=== PATIENT | female | born 1965 | race Caucasian/White ===

== ENCOUNTER 2019-08-02 11:09 | Outpatient (CLI) | payer OTHER, SELFPAY ==
--- NOTE | ~2019-08-02 | XR_ITS ---
XR chest 2V DATE: 08/02/2019 11:24 INDICATION: Chest pain TECHNIQUE: PA and lateral views COMPARISON: None FINDINGS: Normal heart size. No hilar or mediastinal enlargement. No pulmonary infiltrate or consolid ation, pleural effusion or pulmonary vascular congestion or pneumothorax. Thoracic and lumbar scolios is. The right breast shadow is smaller than the left and there are surgical clips overlying the right axi llary area, suggesting partial right mastectomy and right axillary node dissection. IMPRESSION: No active cardiopulmonary disease Reviewed, dictated and finalized at location A.
== END 2019-08-02 11:10 | disposition home or self-care (01) ==
LOC: ANHIMG 11:11
PROVIDERS: PCP Family Medicine; Visit Provider Family Medicine
DX: R07.9 Chest pain, unspecified (principal)
CPT/HCPCS: 71046

== ENCOUNTER 2019-09-15 12:34 | Outpatient (CLI) | payer OTHER, SELFPAY ==
--- NOTE | ~2019-09-15 | CT_ITS ---
EXAMINATION: CT abdomen pelvis w con DATE: 09/15/2019 13:56 INDICATION: Left lower quadrant abdominal pain, right lower quadrant abdominal pain TECHNIQUE: Computed tomography (CT) of the abdomen and pelvis was performed with 100 cc Omnipaque 350 intravenous contrast. Automated exposure control and iterative reconstruction technique were employe d. Exam dose: 261.26 mGy-cm total exam DLP. COMPARISON: 03/31/2019 CT abdomen pelvis FINDINGS: The lung bases are clear of infiltrate or consolidation. Normal heart size. No pericardial or pleural effusion. There is an approximately 7 mm indeterminate hypoattenuating lesion of the medial segment of the left hepatic lobe. Probable 5 mm cyst of the lateral segment of left hepatic lobe. No other hepatic space -occupying mass lesion is evident. The gallbladder is present. No gallbladder wall thickening or pericholecystic fluid or stranding. No bile duct or pancreatic duct dilatation. Normal splenic size. There are multiple calcified splenic granulomas. Normal morphology of the adrenal glands. Status post right nephrectomy. Again noted is suggestion of prominent left hydronephrosis, likely due to ureteropelvic junction disp roportion. There are multiple parapelvic left renal cysts, as well as some small cortical cysts. No s uspicious solid left renal mass lesion is evident. No left urinary tract calculus is noted. Normal caliber of the abdominal aorta. There is a long segment of thickening of the wall of the proximal sigmoid colon and mild pericolic fa t stranding. There are multiple diverticula. The findings suggest diverticulitis. No abscess is evide nt. No bowel obstruction is detected. No intraperitoneal free air. Normal appendix. No suspicious osteolytic or osteoblastic lesions. IMPRESSION: Sigmoid diverticulitis Diverticulosis of the colon Persistent left hydronephrosis, likely due to a UPJ disproportion Parapelvic and small cortical left renal cysts Status post right nephrectomy 7 mm and 5 mm hypoattenuating hepatic lesions, stable since 03/31/2019, likely benign Reviewed, dictated and finalized at Location [facility]. Reviewed, dictated and finalized at location A.
[2019-09-15 13:40] LABS: Estimated Glomerular Filt Rate 52
[2019-09-15 14:35] LABS: Hematocrit 40.6 % (37.0-47.0); Hemoglobin 13.5 g/dL (12.0-15.0); Mean Corpuscular HGB Conc 33.3 g/dl (32-36); Mean Corpuscular Hemoglobin 28.6 pg (26-34); Mean Platelet Volume 11.1 fl (7.4-10.4); Platelet Count Result 153 k/mm3 (150-375); Red Blood Count 4.72 M/mm3 (4.2-5.4); Red Cell Distribution Width 12.1 % (11.5-14.5); White Blood Count 5.5 K/mm3 (4.5-10.0)
== END 2019-09-15 12:35 | disposition home or self-care (01) ==
PROVIDERS: PCP Family Medicine; Visit Provider Family Medicine
DX: K57.92 Diverticulitis of intestine, part unspecified, without perforation or abscess without bleeding (principal); R10.32 Left lower quadrant pain
CPT/HCPCS: 36415; 74177; 85027; Q9967

== ENCOUNTER 2020-01-17 01:00 | Outpatient (CLI) | payer OTHER, SELFPAY ==
[2020-01-17 19:19] LABS: SARS-CoV-2 RNA PCR Negative
== END 2020-01-17 01:01 | disposition home or self-care (01) ==
LOC: ANHCOVIDDT 01:00
PROVIDERS: PCP Family Medicine; Visit Provider Internal Medicine Gastroenterology
DX: Z01.812 Encounter for preprocedural laboratory examination (principal); Z20.828 Contact with and (suspected) exposure to other viral communicable diseases
CPT/HCPCS: 87635; C9803; U0003

== ENCOUNTER 2020-01-19 00:41 | Day surgery (SDC) | payer OTHER, SELFPAY ==
[2019-10-20 10:19] VITALS: BMI 22.8
[2020-01-12 14:38] VITALS: BMI 23.7
[2020-01-19 10:19] VITALS: BP 127/74; PULSE 74; RESP 20; TEMP 36.6; O2SAT 100
[2020-01-19] MEDS: LACTATED RINGERS 1,000 ML 150 ML IV CONT (10:28)
--- NOTE | 2020-01-19 10:51 | WPDANESEPPF ---
Anes - Initial Pre Proc Eval Procedure: Operation Date: 01/19/20 11:00 Proposed Procedures p Colonoscopy - Ja Umanzor MD Date/Time: 01/19/20 10:51 Surgeon: Ja Umanzor MD Pre Op Diagnosis: Diverticulitis Patient Data Age: 54 Gender: F Height: 5 ft 1 in Weight: 54.8 kg Last Vital Signs Temp 97.8 F 01/19/20 10:19 Pulse 74 01/19/20 10:19 Resp 20 01/19/20 10:19 BP 127/74 01/19/20 10:19 Pulse Ox 100 01/19/20 10:19 Allergies Allergy/AdvReac Type Severity Reaction Status Date / Time No Known Allergies Allergy Unknown Verified 01/19/20 10:12 Home Medications Medication Instructions Recorded Confirmed Type zolpidem 10 mg tablet 10 mg PO .HS PRN #30 tablet 03/24/19 10/20/19 Rx fluticasone propionate 50 1 spray NASAL BID #1 device 09/22/19 10/20/19 Rx mcg/actuation nasal spray,suspension peg 3350-electrolytes 236 240 ml PO Q10M #4000 ml 10/17/19 01/12/20 Rx gram-22.74 gram-6.74 gram-5.86 gram solution atenolol 100 mg PO BID 10/20/19 01/19/20 History lisinopril 20 mg tablet 20 mg PO DAILY #30 tablet 12/19/19 01/19/20 Rx amlodipine 5 mg tablet 5 mg PO DAILY #90 tablet 01/17/20 Rx simvastatin 20 mg tablet 20 mg PO DAILY #90 tablet 01/17/20 Rx Patient hx anesthesia problems: none Family hx anesthesia problems: none PMFSH Past Medical History Medical History Allergic rhinitis Diverticulitis large intestine Essential (primary) hypertension History of breast cancer Insomnia Liver cyst Mixed hyperlipidemia Renal cell cancer Surgical History Surgical History H/O colonoscopy H/O lumpectomy History of right nephrectomy Family History Family History Other Family history of chronic obstructive pulmonary disease Family history of coronary artery disease Social History Social History Smoking packs per day: 1 Smoking cigarettes per day: 20.0 Years smoked: 5 Smoking pack-years: 5.00 Smoking status: Former smoker Second hand tobacco smoke exposure: No Alcohol intake: never Living arrangements: with family Gender identity (if verbalized by the patient): Female Spiritual care concerns: No Anes - Eval Final PreProcedure Day of Procedure 01/19/20 10:51 Patient weight: normal Heart: regular rate and rhythm Lungs: clear to auscultation Airway: Mallampati scale class II Neurological: alert and oriented Last oral intake: >/= 8 hours ASA classification: III Emergent: no Anesthetic plan: proceed Anesthesia type and monitoring: general GIVS and standard monitoring Informed Consent: The patient's anesthetic plan and its attendant risks and benefits were discussed with the patient/family/POA. Questions were solicited and answers provided to the satisfaction of the patient/family/POA.
--- NOTE | 2020-01-19 11:13 | PM.HPGS ---
History of Present Illness History of Present Illness Consent: Risks, benefits, and alternatives have been discussed and questions answered. Patient agrees to proceed with procedure. Chief complaint: Diverticulitis Narrative: Luci Chan is a 54 year old female with previous diverticulitis now asymptomatic, last colonoscopy 5 years ago Review of Systems Constitutional: Constitutional: Denies headache(s) and Denies weakness Eyes: Eyes: Denies blurry vision ENT: Reports Normal hearing present, Denies headache(s) and Denies neck pain Cardiovascular: Cardiovascular: Denies chest pain and Denies dyspnea Respiratory: Respiratory: Denies dyspnea Gastrointestinal: Gastrointestinal: Reports no additional gastrointestinal complaints Genitourinary: Genitourinary: Denies dysuria Musculoskeletal: Musculoskeletal: Denies neck pain Integumentary/Breasts: Skin/Breast: Denies dry skin Neurologic: Reports Normal hearing present, Denies headache(s) and Denies weakness Psychiatric: Psychiatric: Denies anxiety Endocrine: Endocrine: Denies change in body appearance Hematologic/Lymphatic: Hematologic/Lymphatic: Denies easy bleeding Allergic/Immunologic: Allergic/Immunologic: Denies urticaria PMFSH Past Medical History Medical History Allergic rhinitis Diverticulitis large intestine Essential (primary) hypertension History of breast cancer Insomnia Liver cyst Mixed hyperlipidemia Renal cell cancer Surgical History Surgical History H/O colonoscopy H/O lumpectomy History of right nephrectomy Family History Family History Other Family history of chronic obstructive pulmonary disease Family history of coronary artery disease Social History Social History Smoking packs per day: 1 Smoking cigarettes per day: 20.0 Years smoked: 5 Smoking pack-years: 5.00 Smoking status: Former smoker Second hand tobacco smoke exposure: No Alcohol intake: never Living arrangements: with family Gender identity (if verbalized by the patient): Female Spiritual care concerns: No Meds Home Medications and Allergies Home Medications Medication Instructions Recorded Confirmed Type zolpidem 10 mg tablet 10 mg PO .HS PRN #30 tablet 03/24/19 10/20/19 Rx fluticasone propionate 50 1 spray NASAL BID #1 device 09/22/19 10/20/19 Rx mcg/actuation nasal spray,suspension peg 3350-electrolytes 236 240 ml PO Q10M #4000 ml 10/17/19 01/12/20 Rx gram-22.74 gram-6.74 gram-5.86 gram solution atenolol 100 mg PO BID 10/20/19 01/19/20 History lisinopril 20 mg tablet 20 mg PO DAILY #30 tablet 12/19/19 01/19/20 Rx amlodipine 5 mg tablet 5 mg PO DAILY #90 tablet 01/17/20 Rx simvastatin 20 mg tablet 20 mg PO DAILY #90 tablet 01/17/20 Rx Allergies Allergy/AdvReac Type Severity Reaction Status Date / Time No Known Allergies Allergy Unknown Verified 01/19/20 10:12 Vital Signs Vital Signs - 24 hr 01/19/20 10:19 Temperature 97.8 F Pulse Rate 74 Respiratory Rate 20 Blood Pressure 127/74 Pulse Oximetry 100 Exam Const: General: comfortable and no acute distress HENMT: General nose exam: Normal nares present Eyes: General: appearance normal, both eyes and all related structures Neck: Neck: no JVD Resp: Auscultation: clear to auscultation bilaterally Cardio: Rate: regular rate Rhythm: regular rhythm GI: Inspection: non-distended GI Palp: Yes Soft to palpation Skin: General skin exam: normal color Neuro: General: gait normal Speech: normal speech Extrem: General: normal to inspection Psych: Mental Status: mental status grossly normal Assessment and Plan Assessment and plan (1) Diverticulitis large intestine: Code(s): K57.32 - Divertic
[2020-01-19 11:17] VITALS: BP 102/85; PULSE 82; RESP 12; O2SAT 100
[2020-01-19 11:27] VITALS: BP 99/75; PULSE 84; RESP 14; O2SAT 100
[2020-01-19 11:37] VITALS: BP 120/77; PULSE 69; RESP 16; O2SAT 100
== END 2020-01-19 12:01 | disposition home or self-care (01) ==
PROVIDERS: PCP Family Medicine; Visit Provider Internal Medicine Gastroenterology
PROC: 0DJD8ZZ Inspection of Lower Intestinal Tract, Via Natural or Artificial Opening Endoscopic (ICD-10-PCS; CPT 45378; principal; 2020-01-19 11:00)
DX: K57.30 Diverticulosis of large intestine without perforation or abscess without bleeding (principal); K64.8 Other hemorrhoids; Z87.19 Personal history of other diseases of the digestive system; C64.9 Malignant neoplasm of unspecified kidney, except renal pelvis; I10 Essential (primary) hypertension; E78.2 Mixed hyperlipidemia; Z85.3 Personal history of malignant neoplasm of breast; Z87.891 Personal history of nicotine dependence
CPT/HCPCS: 45378; J2704; J7120

== ENCOUNTER → 2020-07-02 06:59 | Outpatient (CLI) | payer OTHER, SELFPAY ==
[2020-07-03 02:02] LABS: SARS-CoV-2 RNA PCR Negative
== END ==
PROVIDERS: PCP Family Medicine; Visit Provider Family Medicine
DX: Z20.822 Contact with and (suspected) exposure to COVID-19 (principal)
CPT/HCPCS: C9803; U0003; U0005

== ENCOUNTER → 2023-06-02 09:40 | Outpatient (CLI) | payer OTHER, SELFPAY ==
--- NOTE | ~2023-06-02 | US_ITS ---
EXAMINATION: US transvaginal DATE: 06/02/2023 10:04 INDICATION: Congenital malformation of the ovary TECHNIQUE: Multiple endovaginal sonographic images of the pelvis were obtained. COMPARISON: 12/30/2007 FINDINGS: The uterus measures 5.6 x 2.0 x 3.7 cm. The endometrial complex measures 2 mm. The right ov juanis is not visualized however no right adnexal abnormality is seen. The left ovary measures 1.4 x 1.0 x 1.6 cm. There is normal vascular flow in the left ovary. There is no free fluid in the pelvis. IMPRESSION: 1. Unremarkable left ovary. Right ovary not visualized Reviewed, dictated and finalized at location B. [facility]
== END ==
PROVIDERS: PCP Physician Assistant Medical; Visit Provider Physician Assistant Medical
DX: Q50.39 Other congenital malformation of ovary (principal)
CPT/HCPCS: 76830

== ENCOUNTER 2023-06-17 05:49 | Day surgery (SDC) | payer OTHER, SELFPAY ==
[2023-05-28 09:32] VITALS: BMI 23.4
[2023-06-01 08:32] VITALS: BMI 23.3
[2023-06-17 06:18] VITALS: BP 150/86; PULSE 62; RESP 16; TEMP 36.6; O2SAT 100; BMI 23.1
[2023-06-17] MEDS: LACTATED RINGERS 1,000 ML 150 ML IV CONT (06:33)
--- NOTE | 2023-06-17 07:05 | PM.HPGS ---
History of Present Illness History of Present Illness Consent: Risks, benefits, and alternatives have been discussed and questions answered. Patient agrees to proceed with procedure. Chief complaint: Abdominal distension (gaseous) neoplasia screening Narrative: Luci Chan is a 57 year old female referred for colonoscopy. Patient reports several weeks ago had nausea was seen by primary care service ordered colonoscopy. Nausea and epigastric pain has abated. Patient reports 2 prior colonoscopies. [age] she had colonoscopy that showed diverticular disease. Patient denies any abdominal pain currently. Has had no blood in her stools. Her bowel habits are normal. Review of Systems Review of Systems: Review of systems noncontributory. [facility] Past Medical History Medical History (Updated 06/17/23 @ 07:10 by Bradley Banuelos MD) Allergic rhinitis Diverticulitis large intestine Essential (primary) hypertension History of breast cancer Insomnia Liver cyst Mixed hyperlipidemia Renal cell cancer Surgical History Surgical History H/O colonoscopy H/O lumpectomy History of right nephrectomy Family History Family History Other Family history of chronic obstructive pulmonary disease Family history of coronary artery disease Social History Social History Smoking packs per day: 1 Smoking cigarettes per day: 20.0 Years smoked: 25 Smoking pack-years: 25.00 Smoking status: Former smoker Tobacco type: cigarettes Second hand tobacco smoke exposure: No Smoking end date: 04/12/17 Alcohol intake: current Drinks per week: 0 Alcohol use details: PT STATES RARELY Substance use: never Substance use type: does not use Lack of Transportation: No Lack of Food: Never True Current Housing: I Have Housing Concerned About Future Housing: No Difficulty Paying Gas/Electric Bills: No Difficulty Paying for Meds: No Currently Unemployed: No Education: High School Diploma/GED Difficulty w/ Childcare or Family Care: No Living arrangements: with family Gender identity (if verbalized by the patient): Female Sexual Orientation (if Verbalized by the Patient): Straight or Heterosexual Spiritual care concerns: No Agree to blood products: Yes Meds Home Medications and Allergies Home Medications Medication Instructions Recorded Confirmed Type zolpidem 10 mg tablet (Ambien) 10 mg PO .HS PRN insomnia #30 tabs 05/10/20 05/27/23 Rx fluticasone propionate 50 1 spray intranasal BID #1 device 03/03/22 06/17/23 Rx mcg/actuation nasal spray,suspension cholecalciferol (vitamin D3) 50 50 mcg PO DAILY #30 caps 01/11/23 06/17/23 Rx mcg (2,000 unit) capsule atenolol 25 mg tablet See Rx Instructions .Route 01/17/23 06/17/23 Rx .COMPLEX #180 tabs lisinopril 20 mg tablet See Rx Instructions .Route 02/05/23 06/17/23 Rx .COMPLEX #90 tabs omeprazole 40 mg capsule,delayed 40 mg PO DAILY #60 caps 04/07/23 06/17/23 Rx release amlodipine 5 mg tablet 5 mg PO HS 06/01/23 06/17/23 History simvastatin 20 mg tablet 20 mg PO HS 06/01/23 06/17/23 History Allergies Allergy/AdvReac Type Severity Reaction Status Date / Time No Known Allergies Allergy Unknown Verified 06/17/23 06:11 Vital Signs Vital Signs - 24 hr 06/17/23 06:18 Temperature 97.8 F Pulse Rate 62 Respiratory Rate 16 Blood Pressure 150/86 H Pulse Oximetry 100 Oxygen Delivery Room Air Exam Narrative: Physical exam reveals patient to be alert. Vital signs stable. HEENT exam is unremarkable. Patient is anicteric. Lungs are clear to auscultation and percussion. Heart is without murmur or extra sounds. Abdomen bowel sounds are present soft nontender with no organomegaly. Digital and external rectal exam normal.
--- NOTE | 2023-06-17 07:22 | WPDANESEPPF ---
Anes - Initial Pre Proc Eval Procedure: Operation Date: 06/17/23 07:30 Proposed Procedures p Colonoscopy - Bradley Banuelos MD Date/Time: 06/17/23 07:22 Surgeon: Bradley Banuelos MD Pre Op Diagnosis: Abdominal distension (gaseous) neoplasia screening Patient Data Age: 57 Gender: F Height: 1.57 m Weight: 57.5 kg Last Vital Signs Temp 36.6 C 06/17/23 06:18 Pulse 62 06/17/23 06:18 Resp 16 06/17/23 06:18 BP 150/86 H 06/17/23 06:18 Pulse Ox 100 06/17/23 06:18 O2 Del Method Room Air 06/17/23 06:18 Allergies Allergy/AdvReac Type Severity Reaction Status Date / Time No Known Allergies Allergy Unknown Verified 06/17/23 06:11 Home Medications Medication Instructions Recorded Confirmed Type zolpidem 10 mg tablet (Ambien) 10 mg PO .HS PRN insomnia #30 tabs 05/10/20 05/27/23 Rx fluticasone propionate 50 1 spray intranasal BID #1 device 03/03/22 06/17/23 Rx mcg/actuation nasal spray,suspension cholecalciferol (vitamin D3) 50 50 mcg PO DAILY #30 caps 01/11/23 06/17/23 Rx mcg (2,000 unit) capsule atenolol 25 mg tablet See Rx Instructions .Route 01/17/23 06/17/23 Rx .COMPLEX #180 tabs lisinopril 20 mg tablet See Rx Instructions .Route 02/05/23 06/17/23 Rx .COMPLEX #90 tabs omeprazole 40 mg capsule,delayed 40 mg PO DAILY #60 caps 04/07/23 06/17/23 Rx release amlodipine 5 mg tablet 5 mg PO HS 06/01/23 06/17/23 History simvastatin 20 mg tablet 20 mg PO HS 06/01/23 06/17/23 History Patient hx anesthesia problems: none Family hx anesthesia problems: none Results Review: All pre-operative results and documents have been reviewed as part of the pre-operative evaluation. [facility] Past Medical History Medical History Allergic rhinitis Diverticulitis large intestine Essential (primary) hypertension History of breast cancer Insomnia Liver cyst Mixed hyperlipidemia Renal cell cancer Surgical History Surgical History H/O colonoscopy H/O lumpectomy History of right nephrectomy Family History Family History Other Family history of chronic obstructive pulmonary disease Family history of coronary artery disease Social History Social History Smoking packs per day: 1 Smoking cigarettes per day: 20.0 Years smoked: 25 Smoking pack-years: 25.00 Smoking status: Former smoker Tobacco type: cigarettes Second hand tobacco smoke exposure: No Smoking end date: 04/12/17 Alcohol intake: current Drinks per week: 0 Alcohol use details: PT STATES RARELY Substance use: never Substance use type: does not use Lack of Transportation: No Lack of Food: Never True Current Housing: I Have Housing Concerned About Future Housing: No Difficulty Paying Gas/Electric Bills: No Difficulty Paying for Meds: No Currently Unemployed: No Education: High School Diploma/GED Difficulty w/ Childcare or Family Care: No Living arrangements: with family Gender identity (if verbalized by the patient): Female Sexual Orientation (if Verbalized by the Patient): Straight or Heterosexual Spiritual care concerns: No Agree to blood products: Yes Anes - Eval Final PreProcedure Day of Procedure 06/17/23 07:22 Patient weight: normal Heart: regular rate and rhythm Lungs: clear to auscultation Airway: Mallampati scale class II Neurological: alert and oriented Last oral intake: >/= 8 hours ASA classification: III Emergent: no Anesthetic plan: proceed Anesthesia type and monitoring: general GIVS and standard monitoring Results Review: All pre-operative results and documents have been reviewed as part of the pre-operative evaluation. Informed Consent: The patient's anesthetic plan and its attendant risks and benefits were discussed with the
[2023-06-17 07:41] VITALS: BP 99/66; PULSE 80; RESP 16; O2SAT 99
[2023-06-17 07:51] VITALS: BP 113/76; PULSE 70; RESP 16; O2SAT 100
[2023-06-17 08:01] VITALS: BP 121/78; PULSE 67; RESP 16; O2SAT 100
--- NOTE | 2023-06-17 08:13 | WPDANESPN ---
Anes - Prog Note Post-Op Date/Time: 06/17/23 08:13 Cardiovascular status: normal Respiratory status: normal Airway patency: baseline Mental status: baseline Post-Op hydration status: normal Vital Signs: Last Vital Signs Temp 36.6 C 06/17/23 06:18 Pulse 67 06/17/23 08:01 Resp 16 06/17/23 08:01 BP 121/78 06/17/23 08:01 Pulse Ox 100 06/17/23 08:01 O2 Del Method Room Air 06/17/23 08:01 Pain Score (VAS): 0/10 I/O: Intake & Output 06/16/23 06/17/23 06/17/23 23:59 07:59 15:59 Intake Total 600 150 Balance 600 150 Patient Feedback: Patient satisfied with anesthetic care.
== END 2023-06-17 08:11 | disposition home or self-care (01) ==
PROVIDERS: PCP Family Medicine; Visit Provider Internal Medicine Gastroenterology
PROC: 0DJD8ZZ Inspection of Lower Intestinal Tract, Via Natural or Artificial Opening Endoscopic (ICD-10-PCS; CPT 45378; principal; 2023-06-17 07:30)
DX: Z12.11 Encounter for screening for malignant neoplasm of colon (principal); K57.30 Diverticulosis of large intestine without perforation or abscess without bleeding; K64.8 Other hemorrhoids
CPT/HCPCS: 45378

== ENCOUNTER 2023-07-09 10:13 | Outpatient (CLI) | payer OTHER, SELFPAY ==
[2023-07-13 10:57] LABS: Immunoglobulin A 205 mg/dL (47-310); TTG IGA AB <1.0 U/mL (<15.0)
== END 2023-07-09 10:14 | disposition home or self-care (01) ==
LOC: ANHLAB 10:14
PROVIDERS: PCP Family Medicine; Visit Provider Physician Assistant Medical
DX: R11.0 Nausea (principal)
CPT/HCPCS: 36415; 82784; 86364

== ENCOUNTER 2023-07-17 08:40 | Outpatient (CLI) | payer OTHER, SELFPAY ==
[2023-07-17 09:12] LABS: Basophils Percent Auto 0.6 % (0.2-1.2); Eosinophils Absolute Auto 0.1 K/mm3 (0-0.3); Eosinophils Percent Auto 1.5 % (0-4.4); Hematocrit 43.4 % (37.0-47.0); Hemoglobin 14.3 g/dL (12.0-15.0); Immature Granulocyte Absolute 0.02 K/mm3 (0.00-0.031); Immature Granulocyte Percent A 0.4 % (0-0.5); Lymphocytes Absolute Auto 1.27 K/mm3 (0.9-3.2); Lymphocytes Percent Auto 24.3 % (18.3-44.2); Mean Corpuscular HGB Conc 32.9 g/dl (32-36); Mean Corpuscular Hemoglobin 28.3 pg (26-34); Mean Corpuscular Volume 85.9 fl (80-100); Mean Platelet Volume 9.9 fl (7.4-10.4); Monocytes Absolute Auto 0.4 K/mm3 (0.1-0.6); Monocytes Percent Auto 7.9 % (2.6-8.5); Neutrophils Absolute Auto 3.4 K/mm3 (1.3-6.7); Neutrophils Percent Auto 65.3 % (45.5-73.1); Platelet Count Result 242 k/mm3 (150-375); Red Blood Count 5.05 M/mm3 (4.2-5.4); Red Cell Distribution Width 12.4 % (11.5-14.5); White Blood Count 5.2 K/mm3 (4.5-10.0)
[2023-07-17 09:33] LABS: Alanine Aminotransferase 25 U/L (6-35); Albumin Level 4.6 g/dL (3.5-5.1); Alkaline Phosphatase 78 U/L (38-126); Anion Gap 4 mmol/L (4-12); Aspartate Amino Transferase 29 U/L (14-36); Bilirubin,Total 0.9 mg/dL (0.2-1.3); Blood Urea Nitrogen 20 mg/dL (7-17); Calcium 10.2 mg/dL (8.4-10.2); Carbon Dioxide 32 mmol/L (22-30); Chloride 104 mmol/L (98-107); Cholesterol 225 mg/dL (0-200); Estimated Glomerular Filt Rate 57; Glucose 100 mg/dL (65-110); HDL Direct 75 mg/dL; Potassium 4.5 mmol/L (3.4-5.0); Sodium 140 mmol/L (137-145); Triglycerides 96 mg/dL (<150)
[2023-07-17 09:43] LABS: LDL Cholesterol Direct 117 mg/dL
[2023-07-17 10:41] LABS: Vitamin D 25 Hydroxy 36.1 ng/mL
== END 2023-07-17 08:41 | disposition home or self-care (01) ==
LOC: ANHLAB 08:42
PROVIDERS: PCP Family Medicine; Visit Provider Physician Assistant Medical
DX: E55.9 Vitamin D deficiency, unspecified (principal); E78.2 Mixed hyperlipidemia; D64.9 Anemia, unspecified
CPT/HCPCS: 36415; 80053; 80061; 82306; 85025

== ENCOUNTER 2023-07-24 08:32 | Outpatient (CLI) | payer OTHER, SELFPAY ==
[2023-07-24 09:46] LABS: Anion Gap 5 mmol/L (4-12); Blood Urea Nitrogen 22 mg/dL (7-17); Carbon Dioxide 29 mmol/L (22-30); Chloride 100 mmol/L (98-107); Estimated Glomerular Filt Rate > 60; Glucose 90 mg/dL (65-110); Potassium 4.3 mmol/L (3.4-5.0); Sodium 134 mmol/L (137-145)
== END 2023-07-24 08:33 | disposition home or self-care (01) ==
LOC: ANHLAB 08:34
PROVIDERS: PCP Family Medicine; Visit Provider Physician Assistant Medical
DX: E78.2 Mixed hyperlipidemia (principal)
CPT/HCPCS: 36415; 80048

== ENCOUNTER 2023-08-26 05:51 | Day surgery (SDC) | payer OTHER, SELFPAY ==
[2023-08-19 14:39] VITALS: BMI 24.3
[2023-08-20 09:11] VITALS: BMI 24.3
[2023-08-26 06:34] VITALS: BP 157/86; PULSE 70; RESP 16; TEMP 36.4; O2SAT 100; BMI 24.0
--- NOTE | 2023-08-26 07:11 | WPDHPUPDATE1 ---
History and Physical Update Update Date/Time: 08/26/23 07:11 History and Physical has been reviewed, including an updated exam of the patient. There are NO changes in the patient's condition. Risks, benefits, and alternatives have been discussed and questions answered. Patient agrees to proceed with procedure.
--- NOTE | 2023-08-26 07:24 | WPDANESEPPF ---
Anes - Initial Pre Proc Eval Procedure: Operation Date: 08/26/23 07:30 Proposed Procedures p Esophagogastroduodenoscopy - Bradley Banuelos MD Date/Time: 08/26/23 07:24 Surgeon: Bradley Banuelos MD Pre Op Diagnosis: Epigastric Pain, ABD Distension, Nausea Patient Data Age: 58 Gender: F Height: 1.55 m Weight: 57.8 kg Last Vital Signs Temp 36.4 C 08/26/23 06:34 Pulse 70 08/26/23 06:34 Resp 16 08/26/23 06:34 BP 157/86 H 08/26/23 06:34 Pulse Ox 100 08/26/23 06:34 O2 Del Method Room Air 08/26/23 06:34 Allergies Allergy/AdvReac Type Severity Reaction Status Date / Time No Known Allergies Allergy Unknown Verified 08/26/23 06:19 Home Medications Medication Instructions Recorded Confirmed Type cholecalciferol (vitamin D3) 50 50 mcg PO DAILY #30 caps 01/11/23 08/26/23 Rx mcg (2,000 unit) capsule atenolol 25 mg tablet See Rx Instructions .Route 01/17/23 08/26/23 Rx .COMPLEX #180 tabs amlodipine 5 mg tablet 5 mg PO HS #90 tabs 07/20/23 08/26/23 Rx simvastatin 20 mg tablet 20 mg PO HS #90 tabs 07/20/23 08/26/23 Rx lisinopril 20 mg tablet 20 mg PO DAILY 08/20/23 08/26/23 History mometasone 50 mcg/actuation nasal 2 spray intranasal BID #17 grams 08/23/23 08/26/23 Rx spray Patient hx anesthesia problems: none Family hx anesthesia problems: none Results Review: All pre-operative results and documents have been reviewed as part of the pre-operative evaluation. [facility] Past Medical History Medical History Allergic rhinitis Bloating Diverticulitis large intestine Encounter for screening colonoscopy Epigastric pain Essential (primary) hypertension Fatigue History of breast cancer Hydronephrosis Hyperkalemia Insomnia Liver cyst Mixed hyperlipidemia Suspected COVID-19 virus infection Surgical History Surgical History H/O colonoscopy H/O lumpectomy History of right nephrectomy Family History Family History Other Family history of chronic obstructive pulmonary disease Family history of coronary artery disease Social History Social History Smoking packs per day: 1 Smoking cigarettes per day: 20.0 Years smoked: 25 Smoking pack-years: 25.00 Smoking status: Former smoker Tobacco type: cigarettes Second hand tobacco smoke exposure: No Smoking end date: 04/12/17 Alcohol intake: current Drinks per week: 0 Alcohol use details: PT STATES RARELY Substance use: never Substance use type: does not use Lack of Transportation: No Lack of Food: Never True Current Housing: I Have Housing Concerned About Future Housing: No Difficulty Paying Gas/Electric Bills: No Difficulty Paying for Meds: No Currently Unemployed: No Education: High School Diploma/GED Difficulty w/ Childcare or Family Care: No Living arrangements: with family Gender identity (if verbalized by the patient): Female Sexual Orientation (if Verbalized by the Patient): Straight or Heterosexual Spiritual care concerns: No Agree to blood products: Yes Anes - Eval Final PreProcedure Day of Procedure 08/26/23 07:24 Patient weight: normal Heart: regular rate and rhythm Lungs: clear to auscultation Airway: Mallampati scale class II Neurological: alert and oriented Last oral intake: >/= 8 hours ASA classification: III Emergent: no Anesthetic plan: proceed Anesthesia type and monitoring: general GIVS and standard monitoring Results Review: All pre-operative results and documents have been reviewed as part of the pre-operative evaluation. Informed Consent: The patient's anesthetic plan and its attendant risks and benefits were discussed with the patient/family/POA. Questions were solicited and answers provided to the satisfaction of t
[2023-08-26] MEDS: LACTATED RINGERS 1,000 ML 150 ML IV CONT (07:25)
[2023-08-26 07:38] VITALS: BP 136/76; PULSE 86; RESP 15; O2SAT 99
[2023-08-26 07:48] VITALS: BP 124/88; PULSE 88; RESP 16; O2SAT 98
[2023-08-26 07:58] VITALS: BP 128/91; PULSE 69; RESP 16; O2SAT 99
--- NOTE | 2023-08-26 08:50 | WPDANESPN ---
Anes - Prog Note Post-Op Date/Time: 08/26/23 08:50 Cardiovascular status: normal Respiratory status: normal Airway patency: baseline Mental status: baseline Post-Op hydration status: normal Vital Signs: Last Vital Signs Temp 36.4 C 08/26/23 06:34 Pulse 69 08/26/23 07:58 Resp 16 08/26/23 07:58 BP 128/91 H 08/26/23 07:58 Pulse Ox 99 08/26/23 07:58 O2 Del Method Room Air 08/26/23 07:58 Pain Score (VAS): 0 I/O: Intake & Output 08/25/23 08/26/23 08/26/23 23:59 07:59 15:59 Intake Total 500 Balance 500 Patient Feedback: Patient satisfied with anesthetic care.
== END 2023-08-26 08:08 | disposition home or self-care (01) ==
PROVIDERS: PCP Family Medicine; Visit Provider Internal Medicine Gastroenterology
PROC: 0DJ08ZZ Inspection of Upper Intestinal Tract, Via Natural or Artificial Opening Endoscopic (ICD-10-PCS; CPT 43235; principal; 2023-08-26 07:30)
DX: R11.0 Nausea (principal); R10.13 Epigastric pain; R14.0 Abdominal distension (gaseous)
CPT/HCPCS: 43239

== ENCOUNTER 2023-09-09 11:02 | Outpatient (CLI) | payer OTHER, SELFPAY ==
--- NOTE | ~2023-09-09 | XR_ITS ---
EXAMINATION: XR lumbar spine min 4V DATE: 09/09/2023 11:22 INDICATION: Low back pain, unspecified. TECHNIQUE: 5 views of lumbar spine were obtained. COMPARISON: CT abdomen and pelvis 09/15/2019 FINDINGS: There is a degrees levocurvature of lumbar spine. S1 is a transitional segment. Interverteb ral disc heights are normal. There is multilevel facet joint osteoarthritis, severe at most lumbar le vels. IMPRESSION: 1. Severe lumbar facet joint osteoarthritis. Reviewed, dictated and finalized at location A.
== END 2023-09-09 11:03 ==
PROVIDERS: PCP Family Medicine; Visit Provider Family Medicine
DX: M54.50 Low back pain, unspecified (principal); M85.88 Other specified disorders of bone density and structure, other site
CPT/HCPCS: 72110

== ENCOUNTER 2024-01-29 08:52 | Outpatient (CLI) | payer OTHER, SELFPAY ==
[2024-01-29 09:25] LABS: Alanine Aminotransferase 23 U/L (6-35); Albumin Level 4.7 g/dL (3.5-5.1); Alkaline Phosphatase 66 U/L (38-126); Anion Gap 9 mmol/L (4-12); Aspartate Amino Transferase 27 U/L (14-36); Blood Urea Nitrogen 24 mg/dL (7-17); Carbon Dioxide 29 mmol/L (22-30); Chloride 101 mmol/L (98-107); Cholesterol 221 mg/dL (0-200); Estimated Glomerular Filt Rate 57; Glucose 101 mg/dL (65-110); HDL Direct 75 mg/dL; Potassium 4.3 mmol/L (3.4-5.0); Sodium 139 mmol/L (137-145); Triglycerides 107 mg/dL (<150)
[2024-01-29 09:35] LABS: LDL Cholesterol Direct 99 mg/dL
[2024-01-29 10:02] LABS: Vitamin D 25 Hydroxy 45.1 ng/mL
== END 2024-01-29 08:53 | disposition home or self-care (01) ==
LOC: ANHLAB 08:54
PROVIDERS: PCP Family Medicine; Visit Provider Student in an Organized Health Care Education/Training Program
DX: E78.2 Mixed hyperlipidemia (principal); E55.9 Vitamin D deficiency, unspecified
CPT/HCPCS: 36415; 80053; 80061; 82306

== ENCOUNTER 2024-02-05 09:47 | Outpatient (CLI) | payer OTHER, SELFPAY ==
[2024-02-05 10:09] LABS: Add Urine Microscopic? YES; Appearance Urine Clear (Clear); Bacteria Urine None Seen /hpf; Bilirubin Urine Negative (Negative); Blood Urine Negative (Negative); Color Urine Yellow (Yellow); Glucose Urine UA Negative (Negative); Ketones Urine Negative (Negative); Leukocyte Esterase Ur Trace LEU/UL (Negative); Nitrate Urine Negative (Negative); Non Pathogenic Casts 0-2; Protein Urine Negative (Negative); RBC Urine 0-2 /hpf (0-2); Specific Grav Ur 1.009 (1.001-1.035); Squamous Epithelial Cell Urine None Seen /hpf (Few); Urobilinogen Urine 0.2 mg/dL (<2.0); WBC Urine 0-5 /hpf (0-3); pH Urine 6.5 (5.0-9.0)
[2024-02-05 10:18] LABS: Anion Gap 9 mmol/L (4-12); Blood Urea Nitrogen 24 mg/dL (7-17); Calcium 9.8 mg/dL (8.4-10.2); Carbon Dioxide 28 mmol/L (22-30); Chloride 102 mmol/L (98-107); Estimated Glomerular Filt Rate > 60; Glucose 97 mg/dL (65-110); Potassium 4.2 mmol/L (3.4-5.0); Sodium 139 mmol/L (137-145)
== END 2024-02-05 09:48 | disposition home or self-care (01) ==
LOC: ANHLAB 09:48
PROVIDERS: PCP Family Medicine; Visit Provider Student in an Organized Health Care Education/Training Program
DX: N28.9 Disorder of kidney and ureter, unspecified (principal)
CPT/HCPCS: 36415; 80048; 81001

== ENCOUNTER 2024-02-10 14:40 | Outpatient (CLI) | payer OTHER, SELFPAY ==
--- NOTE | ~2024-02-10 | US_ITS ---
EXAMINATION: US renal BI DATE: 02/10/2024 14:56 INDICATION: Abnormal findings of blood chemistry. TECHNIQUE: Multiple ultrasound grayscale images of the kidneys were obtained. COMPARISON: CT abdomen and pelvis 09/15/2019 FINDINGS: The right kidney is absent. The left kidney measures 13.5 x 6.2 x 4.0 cm. The left kidney demonstrate s normal parenchymal echogenicity. There are peripelvic cysts in left kidney measuring up to 2.4 cm. There is mild left hydronephrosis. The bladder is normal. IMPRESSION: 1. Chronic mild left hydronephrosis. 2. Right nephrectomy. Reviewed, dictated and finalized at location B.
== END 2024-02-10 14:41 | disposition home or self-care (01) ==
LOC: MICIMG 14:41
PROVIDERS: PCP Family Medicine; Visit Provider Student in an Organized Health Care Education/Training Program
DX: R79.9 Abnormal finding of blood chemistry, unspecified (principal); Z90.5 Acquired absence of kidney
CPT/HCPCS: 76775